=== PATIENT | male | born 1990 | race Caucasian/White ===

== ENCOUNTER 2022-08-05 20:07 | Emergency (ER) | payer OTHER ==
[2022-08-05] MEDS ORDERED: Bacitracin Oint 1 GM U/D Packet TOP ONE (21:14)
== END 2022-08-05 21:40 | disposition home or self-care (01) ==
LOC: JP.ED 20:07
DX: S61.011A Laceration without foreign body of right thumb without damage to nail, initial encounter (principal); Z72.0 Tobacco use; W26.8XXA Contact with other sharp object(s), not elsewhere classified, initial encounter; Y92.89 Other specified places as the place of occurrence of the external cause; Y99.0 Civilian activity done for income or pay
CPT/HCPCS: 99282